=== PATIENT | female | born 1980 | race Caucasian/White ===

== ENCOUNTER → 2017-02-19 | Outpatient (CLI) | payer MEDICARE, MEDICAID ==
[2016-05-10 14:24] VITALS: BP 105/77
[~2017-02-19] MED LIST: ACETAMINOPHEN-H1 TA2 PO; CEPHALEXIN500 M1 PO; COLACE100 M1 PO; DESYREL 50MG50 MG PO; ESCITALOPRAM PO; ESTRACE 1MG1 MG/TAB PO; LAMICTAL 100MG100 MG PO; MELATONIN PO; NAMENDA10 MG PO; NEXIUM40 MG PO; NORCO 325 MG-51 TAB PO; PREMARIN0.3 MG PO; PROPRANOLOL HCL40 MG PO; RANITIDINE300 MG PO; ROZEREM 8MG TABL8 MG PO; TRAZADONE HYDR100 MG; ZOFRAN 8MG8 MG PO; ZOFRAN4 MG
== END ==
LOC: RAD 13:30
DX: I82.4Z2 Acute embolism and thrombosis of unspecified deep veins of left distal lower extremity (principal)

== ENCOUNTER → 2017-03-28 | Outpatient (CLI) | payer MEDICARE, MEDICAID ==
[2016-05-10 14:24] VITALS: BP 105/77
== END ==
LOC: RAD 09:00
DX: I82.4Z2 Acute embolism and thrombosis of unspecified deep veins of left distal lower extremity (principal)

== ENCOUNTER 2017-07-11 13:00 | Outpatient (RCR) | payer MEDICARE, MEDICAID ==
[2016-05-10 14:24] VITALS: BP 105/77
== END 2017-07-11 13:30 | disposition home or self-care (01) ==
LOC: PT 13:00
DX: M25.561 Pain in right knee (principal); M79.605 Pain in left leg
CPT/HCPCS: G8978-GP; G8979-GP

== ENCOUNTER → 2017-08-21 | Outpatient (CLI) | payer MEDICARE, MEDICAID ==
[2016-05-10 14:24] VITALS: BP 105/77
== END ==
LOC: RAD 08-12 10:00
DX: I82.402 Acute embolism and thrombosis of unspecified deep veins of left lower extremity (principal); D50.9 Iron deficiency anemia, unspecified

== ENCOUNTER 2017-12-10 15:00 | Outpatient (RCR) | payer MEDICARE, MEDICAID ==
[2016-05-10 14:24] VITALS: BP 105/77
[2017-12-17] MEDS ORDERED: AUGMENTIN 875-1 EAC1 PO (18:21)
[2017-12-17] MEDS ORDERED: TESSALON PERLE100 M1 PO (18:21)
[2017-12-25] MEDS ORDERED: AMOXICILLIN AND1 TAB PO (15:46)
== END 2017-12-29 | disposition home or self-care (01) ==
LOC: PT
DX: G80.0 Spastic quadriplegic cerebral palsy (principal)
CPT/HCPCS: G8978-GP; G8979-GP

== ENCOUNTER 2017-12-17 17:07 | Emergency (ER) | payer MEDICARE, MEDICAID ==
[~2017-12-17] VITALS: Ht 149.9 cm; Wt 62.7 kg
[2017-12-17] MEDS ORDERED: TESSALON PERLE100 M1 PO (18:21)
[2017-12-17] MEDS ORDERED: AUGMENTIN 875-1 EAC1 PO (18:21)
[2017-12-17 18:36] VITALS: BP 105/75
== END 2017-12-17 18:37 | disposition home or self-care (01) ==
LOC: ED 17:07
DX: J20.9 Acute bronchitis, unspecified (principal); G80.9 Cerebral palsy, unspecified; R10.811 Right upper quadrant abdominal tenderness; R10.816 Epigastric abdominal tenderness; Z98.2 Presence of cerebrospinal fluid drainage device; Z88.2 Allergy status to sulfonamides; Z79.899 Other long term (current) drug therapy

== ENCOUNTER 2017-12-25 14:58 | Outpatient (RCR) | payer MEDICARE, MEDICAID ==
[~2017-12-25] VITALS: Ht 149.9 cm; Wt 62.7 kg
--- NOTE | 2017-12-25 14:30 | NUR ---
CALL TO ORDERING PROVIDER (AIDAN ROSS APRN) AT THIS TIME FOR AN UPDATED ORDER INCLUDING STOP DATE/ORDER PARAMETERS, WELL ANY LABS THEY WILL BE REQUESTING PRIOR TO INFUSION, VOICEMAIL WITH RETURN PHONE NUMBER LEFT FOR PROVIDERS NURSE
[~2017-12-25 14:58] MED LIST changes: -AMOXICILLIN AND1 TAB PO
[2017-12-25] MEDS ORDERED: AMOXICILLIN AND1 TAB PO (15:46)
[2017-12-25 15:47] VITALS: BP 127/88
[2017-12-25 17:42] VITALS: BP 115/71
== END 2018-03-25 | disposition home or self-care (01) ==
LOC: AMSURD
DX: D50.8 Other iron deficiency anemias (principal)
CPT/HCPCS: J2916

== ENCOUNTER → 2017-12-25 | Outpatient (CLI) | payer MEDICARE, MEDICAID ==
[~2017-12-25] MED LIST changes: +AMOXICILLIN AND1 TAB PO; +AUGMENTIN 875-1 EAC1 PO; +TESSALON PERLE100 M1 PO
[2017-12-25 15:47] VITALS: BP 127/88
== END ==
LOC: LAB 16:09
PROVIDERS: Nurse Practitioner
DX: D50.9 Iron deficiency anemia, unspecified (principal)

== ENCOUNTER 2018-02-13 14:00 | Outpatient (RCR) | payer MEDICARE, MEDICAID ==
[~2018-02-13 14:00] MED LIST changes: +AMOXICILLIN AND1 TAB PO
== END 2018-04-01 | disposition home or self-care (01) ==
LOC: PT
DX: G80.0 Spastic quadriplegic cerebral palsy (principal)
CPT/HCPCS: G8978-GP; G8979-GP

== ENCOUNTER 2018-05-28 14:45 | Outpatient (RCR) | payer MEDICARE, MEDICAID | END 2018-06-29 | disposition home or self-care (01) | LOC: PT | DX: G80.0 Spastic quadriplegic cerebral palsy (principal) | CPT/HCPCS: G8978-GP; G8979-GP ==

== ENCOUNTER 2018-08-05 13:43 | Outpatient (RCR) | payer MEDICARE, MEDICAID ==
[2018-07-22 15:18] VITALS: BP 132/87
[2018-07-22 16:00] VITALS: BP 101/72
[2018-07-22 16:20] VITALS: BP 107/73
[2018-07-22 16:40] VITALS: BP 124/73
[2018-07-22 17:00] VITALS: BP 120/79
[2018-07-22 17:30] VITALS: BP 107/74
[2018-07-29 15:12] VITALS: BP 119/78
[2018-07-29 17:00] VITALS: BP 122/79
[~2018-08-05] VITALS: Ht 149.9 cm; Wt 65.0 kg
[~2018-08-05 13:43] MED LIST changes: +ABILIFY 10MG TA10 MG PO; +ATIVAN0.5 MG PO; +DITROPAN XL10 M1 PO; +ONDANSETRON HYDR4 MG PO; +SUBVENITE100 MG PO; +VITAMIN D50000 UNIT PO; +XARELTO20 MG PO; +ZALEPLON10 MG PO
[2018-08-05 13:58] VITALS: BP 124/71
[2018-08-05 15:53] VITALS: BP 105/71
== END 2018-08-05 20:00 | disposition home or self-care (01) ==
LOC: AMSURD 13:43
DX: D50.8 Other iron deficiency anemias (principal); R16.0 Hepatomegaly, not elsewhere classified
CPT/HCPCS: J1756; J7050

== ENCOUNTER 2018-09-09 14:00 | Outpatient (RCR) | payer MEDICARE, MEDICAID | END 2018-10-15 | disposition still patient (30) | LOC: PT | DX: G80.0 Spastic quadriplegic cerebral palsy (principal) ==

== ENCOUNTER → 2019-02-25 | Outpatient (CLI) | payer MEDICARE, MEDICAID | LOC: RAD 09:17 | DX: M13.862 Other specified arthritis, left knee (principal); M13.861 Other specified arthritis, right knee ==

== ENCOUNTER → 2019-03-25 | Outpatient (RCR) | payer MEDICARE, MEDICAID | END | disposition home or self-care (01) | LOC: PT | DX: G80.0 Spastic quadriplegic cerebral palsy (principal) ==

== ENCOUNTER → 2019-07-01 | Outpatient (RCR) | payer MEDICARE, MEDICAID | END | disposition still patient (30) | LOC: PT | DX: G80.0 Spastic quadriplegic cerebral palsy (principal) ==

== ENCOUNTER 2019-07-29 14:30 | Outpatient (RCR) | payer MEDICARE, MEDICAID | END 2019-10-06 | disposition home or self-care (01) | LOC: PT | DX: G80.0 Spastic quadriplegic cerebral palsy (principal) ==

== ENCOUNTER → 2020-11-25 | Outpatient (CLI) | payer MEDICARE, MEDICAID ==
[~2020-11-25] MED LIST changes: +ARIPIPRAZOLE20 MG PO; +AZELASTINE137 MCG/A1 NS; +BENZONATATE100 M2 PO; +FEROSUL325 M1 PO; +LAMOTRIGINE150 MG PO; +OMEPRAZOLE40 MG PO; +XARELTO10 MG PO
== END ==
LOC: RAD 13:59
DX: R11.10 Vomiting, unspecified (principal); Z98.2 Presence of cerebrospinal fluid drainage device

== ENCOUNTER 2020-12-15 10:39 | Outpatient (RCR) | payer MEDICARE, MEDICAID ==
[~2020-12-15 10:39] MED LIST changes: -ARIPIPRAZOLE20 MG PO; -AZELASTINE137 MCG/A1 NS; -BENZONATATE100 M2 PO; -FEROSUL325 M1 PO; -LAMOTRIGINE150 MG PO; -OMEPRAZOLE40 MG PO; -XARELTO10 MG PO
[2021-02-22] MEDS ORDERED: ARIPIPRAZOLE20 MG PO (10:53)
[2021-02-22] MEDS ORDERED: AZELASTINE137 MCG/A1 NS (10:53)
[2021-02-22] MEDS ORDERED: BENZONATATE100 M2 PO (10:54)
[2021-02-22] MEDS ORDERED: OMEPRAZOLE40 MG PO (11:09)
[2021-02-22] MEDS ORDERED: FEROSUL325 M1 PO (11:09)
[2021-02-22] MEDS ORDERED: LAMOTRIGINE150 MG PO (11:09)
[2021-02-22] MEDS ORDERED: XARELTO10 MG PO (11:10)
== END 2021-03-15 ==
LOC: PT
DX: M25.561 Pain in right knee (principal); M25.562 Pain in left knee; G89.29 Other chronic pain

== ENCOUNTER 2021-02-22 10:30 | Emergency (ER) | payer MEDICARE, MEDICAID ==
[2021-02-22] MEDS ORDERED: AZELASTINE137 MCG/A1 NS (10:53)
[2021-02-22] MEDS ORDERED: ARIPIPRAZOLE20 MG PO (10:53)
[2021-02-22] MEDS ORDERED: BENZONATATE100 M2 PO (10:54)
[2021-02-22] MEDS ORDERED: LAMOTRIGINE150 MG PO (11:09)
[2021-02-22] MEDS ORDERED: FEROSUL325 M1 PO (11:09)
[2021-02-22] MEDS ORDERED: OMEPRAZOLE40 MG PO (11:09)
[2021-02-22] MEDS ORDERED: XARELTO10 MG PO (11:10)
[2021-02-22 11:34] LABS: POTASSIUM 4.1 mmol/L (3.5-5.1)
[2021-02-22 11:36] LABS: CALCIUM 9.6 mg/dL (8.3-10.5)
[2021-02-22 11:37] LABS: TOTAL PROTEIN 6.7 g/dL (6.4-8.3)
[2021-02-22 11:39] LABS: TOTAL BILIRUBIN 0.3 mg/dL (0.2-1.2)
[2021-02-22 16:00] VITALS: BP 111/72
== END 2021-02-22 15:51 | disposition home or self-care (01) ==
LOC: ED 10:30
PROVIDERS: Physician Assistant
DX: T46.4X1A Poisoning by angiotensin-converting-enzyme inhibitors, accidental (unintentional), initial encounter (principal); T44.7X1A Poisoning by beta-adrenoreceptor antagonists, accidental (unintentional), initial encounter; T50.1X1A Poisoning by loop [high-ceiling] diuretics, accidental (unintentional), initial encounter; T45.511A Poisoning by anticoagulants, accidental (unintentional), initial encounter; T47.1X1A Poisoning by other antacids and anti-gastric-secretion drugs, accidental (unintentional), initial encounter; T38.3X1A Poisoning by insulin and oral hypoglycemic [antidiabetic] drugs, accidental (unintentional), initial encounter; T45.2X1A Poisoning by vitamins, accidental (unintentional), initial encounter; K21.9 Gastro-esophageal reflux disease without esophagitis; G40.909 Epilepsy, unspecified, not intractable, without status epilepticus; F39 Unspecified mood [affective] disorder; D50.9 Iron deficiency anemia, unspecified; Z79.899 Other long term (current) drug therapy
CPT/HCPCS: J7030

== ENCOUNTER 2021-03-23 15:16 | Outpatient (RCR) | payer MEDICARE, MEDICAID ==
[~2021-03-23 15:16] MED LIST changes: +ARIPIPRAZOLE20 MG PO; +AZELASTINE137 MCG/A1 NS; +BENZONATATE100 M2 PO; +FEROSUL325 M1 PO; +LAMOTRIGINE150 MG PO; +OMEPRAZOLE40 MG PO; +XARELTO10 MG PO
== END 2021-05-26 ==
LOC: PT 15:16
DX: M25.561 Pain in right knee (principal); M25.562 Pain in left knee; G89.29 Other chronic pain

== ENCOUNTER → 2021-04-25 | Outpatient (CLI) | payer MEDICARE, MEDICAID ==
[2021-04-25 10:41] LABS: BASO # 0.04 K/mm3 (0.02-0.10); EOS # 0.04 K/mm3 (0.04-0.40); EOS % 0.5 % (1.0-5.0); HEMATOCRIT 42.6 % (37.0-47.0); LYMPH# 0.99 K/mm3 (1.50-4.00); MEAN CELL VOLUME 96 fl (78-100); MEAN CORPUSCULAR HEMOGLOBIN 29 pg (27-31); MEAN CORPUSCULAR HGB CONC 31 g/dL (33-37); MEAN PLATELET VOLUME 8.7 fl (7.4-10.4); MONO # 0.52 K/mm3 (0.20-0.80); NEU # 6.11 K/mm3 (1.40-6.50); PLATELET COUNT 235 K/mm3 (130-400); RED BLOOD COUNT 4.45 M/mm3 (4.10-5.30); RED CELL DISTRIBUTION WIDTH 14.4 % (11.5-14.5); WHITE BLOOD COUNT 7.7 K/mm3 (4.8-10.8)
== END ==
LOC: LAB 10:12
PROVIDERS: Internal Medicine
DX: D50.9 Iron deficiency anemia, unspecified (principal)

== ENCOUNTER 2021-07-07 13:00 | Outpatient (RCR) | payer MEDICARE, MEDICAID | END 2021-07-24 | disposition home or self-care (01) | LOC: PT | DX: M25.561 Pain in right knee (principal); M25.562 Pain in left knee; G89.29 Other chronic pain ==

== ENCOUNTER 2021-07-27 13:38 | Outpatient (RCR) | payer MEDICARE, MEDICAID | END 2021-08-24 | disposition home or self-care (01) | LOC: PT | DX: M25.561 Pain in right knee (principal); M25.562 Pain in left knee; G89.29 Other chronic pain ==

== ENCOUNTER 2021-08-30 15:33 | Outpatient (RCR) | payer MEDICARE, MEDICAID | END 2021-09-21 17:00 | disposition still patient (30) | LOC: PT 15:33 | DX: M25.561 Pain in right knee (principal); M25.562 Pain in left knee; G89.29 Other chronic pain ==

== ENCOUNTER → 2022-06-12 | Outpatient (CLI) | payer MEDICARE, MEDICAID | LOC: RAD 11:30 | DX: M79.604 Pain in right leg (principal) ==

== ENCOUNTER 2022-08-08 14:28 | Outpatient (RCR) | payer MEDICARE, MEDICAID | END 2022-08-24 | LOC: PT | DX: M25.561 Pain in right knee (principal); M25.562 Pain in left knee; G80.9 Cerebral palsy, unspecified; G89.29 Other chronic pain ==

== ENCOUNTER 2022-12-25 13:31 | Outpatient (RCR) | payer MEDICARE, MEDICAID | END 2023-01-24 | disposition home or self-care (01) | LOC: PT | DX: Q03.9 Congenital hydrocephalus, unspecified (principal); R53.81 Other malaise; R53.1 Weakness ==